=== PATIENT | male | born 1955 | race Caucasian/White ===

== ENCOUNTER 2018-06-05 14:00 | Outpatient (RCR) | payer BC, SELFPAY ==
--- NOTE | 2018-05-06 13:41 | HP.OTEVAL ---
Patient's Visit Information YASMINE ALMENDAREZ is a 62 year old M, referred to Occupational Therapy by Ming Sexton, with a diagnosis of left thumb laceration. Date of Evaluation: 05/05/18 Occupational Therapist: Sultana Bonilla, OTR/L, CHT - Subjective Subjective: PT attends OT eval following a extensor tendon repair of left thumb. pt states DOI was 18. DOS was 04/18/18. pt was casted following sx as pt went to [place] [employer] for a fishing trip. Pt states he did fair with cast. pt attends session today with thumb ext. with aluminum splint. pt is in need of custom orthosis to follow EPL/EPB tendon protocol. - Pain left thumb 1 Pain Intensity Range: 0, 1 - ROM ROM Comments: Right thumb WNL left NT - Strength Curve Saw Operator: left NT Lateral Pinch: Left NT Tripod Pinch: Left NT - Edema Other: minimal left hand - Sensation Sensation Comments: denies loss of senation - Hand/Wrist Evaluation Total Score of Pain & Functional Sections: 53 - Goals Goal:100% adherence to protocol: Yes Comment: EPL/EPB Goal:Daily scar massage when approriate: Yes Goal:Curve Saw Operator/Pinch strength at least 75% of unaffected hand: Yes Goal:No pain with affected hand use: Yes Goal:PIP Circumferences equal to unaffected hand: Yes Goal:Full use of affected hand in daily activities including: Yes Goal:Decrease scar hypersensitivity: Yes - Rehabilitation General Assessment: S/P 17 days left thumb EPL/EPB repair. pt demo need for custom orthosis to allow for tendon to heal. pt was ed. on use of orthosis and precautions. pt also ed on skin care, scar mtg. pt demo need for skilled OTR/L, CHT services 1-2xweek for 6-8 weeks to return pt to PLOF Rehabilitation Potential: Excellent - Anticipated Interventions Anticipated Interventions: A/AAROM/PROM, Scar Care, Triggerpoint Release, Modalities, Orthoses - Visit Plan Frequency: 1-2x /Week Duration: 2 Months TEXT: Thank you for the opportunity to evaluate your patient. For Medicare and Medicare HMO plans, please review the plan of care and approve it. It will need to be FAXED BACK to us at [phone] for Medicare purposes. Please let me know if there are questions or concerns regarding this plan of care. Physician Signature: Date:
--- NOTE | 2018-06-05 14:17 | HP.OTDCSUM_ITS ---
HP - OT D/C Summary It has been my pleasure to treat YASMINE ALMENDAREZ under orders from Ming Sexton , for the diagnosis of left thumb laceration for a total of 6 visit(s). Please see the following information for a summary of their discharge status. 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 IP flex 45. MP flex 45. pt demo good return of his ROM and strength for BADLs, IADLS and home mtg tasks. pt to cont with scar mtg and end range stretch - Goals Patient Goals: Regain Mobility, Regain Strength, Improve Fine Motor Skills, Use Hand/Wrist/Arm Normally Again Goal:100% adherence to protocol: Yes Goal:Daily scar massage when approriate: Yes Goal:Technical Writing Lead/Mgr/Pinch strength at least 75% of unaffected hand: Yes Goal:No pain with affected hand use: Yes Goal:PIP Circumferences equal to unaffected hand: Yes Goal:Full use of affected hand in daily activities including: Yes Goal:Decrease scar hypersensitivity: Yes - Plan Plan: cont with EPL/EPB tendon repair - D/C Information Discharge Comments: Pt was seen for 6 OT visits following a left extensor tendon repair. pt has returned to a ind. level with BADLs and IADLS. Pt has met all functional goals and is D/C at this time. If there are questions or concerns regarding this patient's occupational therapy , please fell free to call me at [phone]. Thank you for the referral of this patient. Sincerely, Sultana Bonilla, OTR/L, CHT
== END 2018-06-05 19:00 | disposition home or self-care (01) ==
LOC: OT 14:00
PROVIDERS: Family Provider Family Medicine; PCP Family Medicine; Visit Provider Orthopaedic Surgery
DX: S66.222D Laceration of extensor muscle, fascia and tendon of left thumb at wrist and hand level, subsequent encounter (principal)
CPT/HCPCS: 97035; 97110; 97140; 97165; 97530; 97760; 97763

== ENCOUNTER → 2020-01-11 10:45 | Outpatient (CLI) | payer MEDICARE, OTHER, SELFPAY ==
[2020-01-06 10:37] VITALS: BMI 34.7
--- NOTE | 2020-01-11 10:51 | RAD_ITS ---
STUDY: X-RAY CHEST REASON FOR EXAM: Male, 64 years old. pneumonia TECHNIQUE: Frontal and lateral views of the chest. COMPARISON: None. FINDINGS: The lungs are clear and expanded. There is no demonstrated pleural abnormality. Normal size heart. Normal mediastinum and maggi. Normal visualized pulmonary arteries. Normal visualized aortic arch and descending thoracic aorta. Normal visualized thoracic spine. Bilateral rotator cuff repairs. There is no demonstrated abnormality of the visualized soft tissue structures of the upper abdomen. RAD/Chest PA and Lateral IMPRESSION: No acute pulmonary findings. Electronically Signed: Nick Le MD at 12:44 EDT Tel , Service support ,
[2020-01-11 12:53] LABS: ALB/GLOB Ratio 0.7 RATIO (0.9-2.4); AST(SGOT) 34 U/L (15-37); Alanine Aminotransfer ALT/SGPT 42 U/L (16-61); Albumin, Serum 3.5 g/dL (3.2-5.0); Alkaline Phosphatase 77 U/L (45-117); Anion Gap 7 (5-15); BUN 16 mg/dL (7-18); BUN/Creat Ratio 13.1 RATIO (10-20); Calcium,Total 8.8 mg/dL (8.5-10.1); Chloride 105 mmol/L (98-107); Cholesterol 172 mg/dL (200); Creatinine, Serum 1.22 mg/dL (0.70-1.30); EST Glomerular Filtration Rate 63 mL/min (>60); Est Glom Filt Rate - Afr Amer 77 mL/min (>60); Globulin 4.8 g/dL (2.2-4.2); Glucose 96 mg/dL (74-106); High Density Lipoprotein 33 mg/dL; PSA,Total - Annual Screen 1.08 ng/mL (0.00-4.00); Potassium 4.1 mmol/L (3.5-5.1); Protein, Total 8.3 g/dL (6.4-8.2); Sodium Level 139 mmol/L (136-145); Triglycerides 192 mg/dL; Very Low Density Lipoprotein 38 mg/dL (5-40)
== END ==
PROVIDERS: PCP Family Medicine; Referring Provider Family Medicine; Visit Provider Family Medicine
DX: J18.9 Pneumonia, unspecified organism (principal); E78.5 Hyperlipidemia, unspecified; I10 Essential (primary) hypertension; R35.0 Frequency of micturition; Z12.5 Encounter for screening for malignant neoplasm of prostate
CPT/HCPCS: 36415; 71046; 80053; 80061; 84153; G0103

== ENCOUNTER → 2020-04-28 08:47 | Outpatient (CLI) | payer MEDICARE, OTHER, SELFPAY ==
[2020-04-28 08:24] VITALS: BMI 34.7
--- NOTE | 2020-04-28 08:49 | RAD_ITS ---
STUDY: X-RAY - THORACIC SPINE REASON FOR EXAM: Male, 64 years old. Recent pain about an inch to the right of thoracic spine by the scapula -- injury a couple years ago to the ribs after a fall TECHNIQUE: 4 view(s) of the thoracic spine were obtained. COMPARISON: None. FINDINGS: Normal kyphosis of the thoracic spine. There is no substantial scoliosis. There is multilevel endplate spondylosis of the thoracic vertebrae. Mild disc space narrowing with bridging spurs likely between T9 and T10. The soft tissue structures are unremarkable. No absent pedicle or paraspinal mass. RAD/Thoracic Spine 3 Views IMPRESSION: Mild degenerative changes, no acute findings Electronically Signed: Tho Erazo MD at 9:18 EDT , Service support ,
== END ==
PROVIDERS: PCP Family Medicine; Referring Provider Family Medicine; Visit Provider Family Medicine
DX: M54.6 Pain in thoracic spine (principal)
CPT/HCPCS: 72072

== ENCOUNTER → 2023-09-11 | Outpatient (CLI) | payer MEDICARE, OTHER, SELFPAY ==
[2023-09-11 16:35] LABS: Absolute Lymphocyte Count 2.56 X10^3/uL (0.83-4.51); Absolute Neutrophil Count 4.2 X10^3/uL (2.0-7.7); Basophil# 0.07 X10^3/uL; Basophil% 0.9 % (0-1); Eosinophil# 0.29 X10^3/uL; Eosinophils% 3.7 % (0-5); Hematocrit 49.5 % (40-54); Lymphocyte # 2.56 X10^3/ul (0.83-4.51); Lymphocyte % 32.8 % (19-41); Mean Corp Hgb Conc 32.3 g/dL (32-36); Mean Corpuscular Hgb 29.9 pg (27.0-32.0); Mean Corpuscular Volume 92.5 fL (80-94); Mean Platelet Vol. 12.3 fl (6.2-12.0); Monocyte# 0.68 X10^3/uL; Monocyte% 8.7 % (0-10); NRBC Flagged by Analyzer 0 % (0-5); Neutrophil # 4.18 X10^3/uL (2.7-7.7); Neutrophil % 53.6 % (47-70); Platelet Count 211 K/mm3 (150-450); RBC Distribution Width CV 13.2 % (11.6-14.6); RBC Distribution Width SD 44.8 fl (35.1-43.9); Red Blood Count 5.35 M/mm3 (4.6-6.2); White Blood Count 7.8 K/mm3 (4.4-11.0)
[2023-09-11 16:51] LABS: ALB/GLOB Ratio 0.7 RATIO (0.9-2.4); AST(SGOT) 42 U/L (15-37); Alanine Aminotransfer ALT/SGPT 53 U/L (16-61); Albumin, Serum 3.2 g/dL (3.2-5.0); Alkaline Phosphatase 83 U/L (45-117); Anion Gap 5 (5-15); BUN 15 mg/dL (7-18); BUN/Creat Ratio 12.5 RATIO (10-20); Calcium,Total 8.6 mg/dL (8.5-10.1); Chloride 108 mmol/L (98-107); EST Glomerular Filtration Rate 64 mL/min (>60); Est Glom Filt Rate - Afr Amer 77 mL/min (>60); Globulin 4.5 g/dL (2.2-4.2); Glucose 217 mg/dL (74-106); Protein, Total 7.7 g/dL (6.4-8.2); Sodium Level 139 mmol/L (136-145)
[2023-09-13 04:08] LABS: LDL, Direct 120295 144 mg/dL (0-99)
== END | disposition home or self-care (01) ==
LOC: BIMLAB 14:36
PROVIDERS: PCP Family Medicine; Referring Provider Family Medicine; Visit Provider Family Medicine
DX: I10 Essential (primary) hypertension (principal)
CPT/HCPCS: 36415; 80053; 83721; 85025

== ENCOUNTER → 2023-09-19 | Outpatient (CLI) | payer MEDICARE, OTHER, SELFPAY ==
[2023-09-19 15:20] LABS: Hemoglobin A1c 5.9 % (3.8-5.6)
== END | disposition home or self-care (01) ==
LOC: BIMLAB 13:03
PROVIDERS: PCP Family Medicine; Referring Provider Family Medicine; Visit Provider Family Medicine
DX: R73.9 Hyperglycemia, unspecified (principal)
CPT/HCPCS: 36415; 83036